=== PATIENT | female | born 1955 | race Caucasian/White ===

== ENCOUNTER 2021-08-26 08:03 | Outpatient (CLI) | payer MEDICARE, OTHER, SELFPAY ==
--- NOTE | 2021-08-26 08:15 | CRLHL7_ITS ---
For Patients: As a result of the Century Cures Act, medical imaging exams and procedure reports are released immediately into your electronic medical record. You may view this report before your referring provider. If you have questions, please contact your health care provider. INDICATION: Resistant HTN TECHNIQUE: Grayscale, color Doppler and spectral Doppler ultrasound examination the renal arteries performed. COMPARISON: None available FINDINGS: BILATERAL RENAL ARTERY DUPLEX ULTRASOUND ABDOMINAL AORTA: Peak systolic velocity = 126 cm/s. No aortic aneurysm. RIGHT KIDNEY: 11.2 cm in length. There is no hydronephrosis. Peak systolic velocity = 129 cm/second Renal artery to aortic peak systolic velocity ratio = 1.02 Resistive indices: 0.8 Renal vein = patent LEFT KIDNEY: 11.0 cm in length. There is no hydronephrosis. Peak systolic velocity = 161 cm/second Renal artery to aortic peak systolic velocity ratio = 1.28 Resistive indices: 0.7 Renal vein = patent IMPRESSION: No evidence of significant renal artery stenosis. Dictated by Brannon Celestin MD @ 08/26/2021 9:55:53 AM (Electronically Signed)
== END 2021-08-26 08:04 | disposition home or self-care (01) ==
LOC: US 08:12
PROVIDERS: PCP Family Medicine; Visit Provider Family Medicine
DX: I10 Essential (primary) hypertension (principal)
CPT/HCPCS: 76775; 93975

== ENCOUNTER 2021-11-13 17:44 | Emergency (ER) | payer MEDICARE, OTHER, SELFPAY ==
[2021-11-13 17:56] VITALS: BP 126/63; PULSE 88; RESP 18; TEMP 36.5; O2SAT 93; BMI 30.2
--- NOTE | 2021-11-13 18:27 | ED_ITS ---
HPI - General Adult General Chief complaint: Dizziness/Vertigo Stated complaint: DIZZINESS,FALLING ISSUES,HIGH BLOOD SUGAR Time Seen by Provider: 11/13/21 17:51 History of Present Illness HPI narrative: This 66-year-old female comes in reporting episodes of dizziness over the past several days. She states that this is not really vertigo or lightheadedness but feels off balance. She did fall earlier today and hit her head without loss of consciousness. She does not have any neurologic deficit and does not complain of a headache. She has had some vomiting and diarrhea over the past several days and states that her mouth is dry. She does have history of diabetes and notes that her blood sugar has been elevated a bit in these past several days. She does not report any pain. She has not had any dysuria. Related Data Home Medications Medication Instructions Recorded Confirmed amlodipine 10 mg tablet mg 11/13/21 atorvastatin 40 mg tablet mg 11/13/21 carvedilol 25 mg tablet mg 11/13/21 dapagliflozin 10 mg tablet mg 11/13/21 (Farxiga) doxazosin 2 mg tablet mg 11/13/21 dulaglutide 3 mg/0.5 mL mg subcut 11/13/21 [facility] furosemide 20 mg tablet mg 11/13/21 gabapentin 300 mg capsule mg 11/13/21 insulin glargine 100 unit/mL (3 unit subcut 11/13/21 mL) subcutaneous pen (Basaglar KwikPen U-100 Insulin) insulin glargine-yfgn 100 unit/mL unit subcut 11/13/21 (3 mL) subcutaneous pen (Semglee (insulin glargine-yfgn) Pen) lisinopril 20 tab 11/13/21 mg-hydrochlorothiazide 12.5 mg tablet metformin 500 mg tablet,extended mg PO 11/13/21 release 24 hr simvastatin 10 mg tablet mg 11/13/21 Allergies Allergy/AdvReac Type Severity Reaction Status Date / Time exenatide [From Bydureon] Allergy Intermediate Verified 11/13/21 18:05 amoxicillin Allergy Mild Verified 11/13/21 18:05 Sulfa (Sulfonamide Allergy Mild Verified 11/13/21 18:05 Antibiotics) Review of Systems Status of ROS: Reports: 10 or more systems reviewed and unremarkable except as noted in History and below Narrative: Constitutional: No fevers, no weight gain or loss. Eyes: No discharge. No vision changes. HENT: No congestion, no sore throat, no ear pain. Cardiovascular: No chest pain, no palpitations. Respiratory: No shortness of breath, no wheezes, no cough. Gastrointestinal: No abdominal pain. Nausea, vomiting, and diarrhea as described above. Genitourinary: No dysuria, no hematuria. Musculoskeletal: Normal range of motion. Skin: No rashes, no pruritis. Neurological: No weakness, sensory change, speech change. She has episodes of feeling off balance. Endo/Heme/Allergies: No bruising or bleeding. No polydipsia. Pysch: no suicidality, no anxiety, no insomnia. All other systems reviewed and are negative. [facility] Medical History (Updated 11/13/21 @ 20:06 by George Sánchez MD) DM (diabetes mellitus), type 2 Hypertension Postoperative prolapse of vaginal wall Surgical History (Updated 11/13/21 @ 18:08 by Whitney Navarro RN) H/O: hysterectomy History of hernia surgery Hx of cataract surgery Social History Smoking Status: Never smoker How often do you have a drink containing alcohol: never AUDIT-C Alcohol total score: 0 Non-prescribed substance use: denies use Exam Narrative: Exam Narrative: Constitutional: Well-developed, well-nourished, no acute distress. HEENT: Normocephalic, atraumatic. Neck: Normal range of motion. Nontender. Supple. Heart: Regular. No murmurs. Normal rate. Intact distal pulses. Lungs: Clear to auscultation. No chest discomfort. No wheezes, rhonchi, or rales. Abdomen: Normal bowel sounds. Nontender. No rebound tenderness. Genitalia: Deferred. Back: No midline tenderness. Normal range of motion. Extremities: Normal range of motion. No injury. Skin: Intact. No rash. Warm. No erythema or pallor. Neurologic: No altered sensation. No weakness. Alert and oriented. No facial asymmetry. No unilateral weakness. Normal speech. Psychiatric: No suicidality. No anxiety or depression. No insomnia. Nursing notes and vitals signs are reviewed. Const: Vital Signs, click to edit/add: Vital Signs - 24 hr 11/13/21 17:56 11/13/21 18:30 Temperature 97.7 F Pulse Rate [Pulse Oximeter] 88 83 Respiratory Rate 18 20 Blood Pressure [Ri ght Upper Arm] 126/63 127/58 L Pulse Oximetry 93 93 Oxygen Delivery Me thod Room Air Room Air Course Vital Signs Vital signs: Initial Vital Signs Temperature 97.7 F 11/13/21 17:56 Temperature Source Temporal Artery Scan 11/13/21 17:56 Pulse Rate 88 11/13/21 17:56 Respiratory Rate 18 11/13/21 17:56 Blood Pressure 126/63 11/13/21 17:56 Blood Pressure Mean 84 11/13/21 17:56 Blood Pressure Position Supine 11/13/21 17:56 Pulse Oximetry 93 11/13/21 17:56 Oxygen Delivery Method 11/13/21 17:56 Vital Signs Temperature 97.7 F 11/13/21 17:56 Pulse Rate 88 11/13/21 17:56 Respiratory Rate 18 11/13/21 17:56 Blood Pressure 126/63 11/13/21 17:56 Pulse Oximetry 93 11/13/21 17:56 Oxygen Delivery Method 11/13/21 17:56 Temperature 97.7 F 11/13/21 17:56 Pulse Rate 83 11/13/21 18:30 Respiratory Rate 20 11/13/21 18:30 Blood Pressure 127/58 L 11/13/21 18:30 Pulse Oximetry 93 11/13/21 18:30 Oxygen Delivery Method 11/13/21 18:30 Medical Decision Making MDM Narrative Medical decision making narrative: This patient comes in reporting some vomiting and diarrhea a few days ago and now has had some feeling of off balance. She arrives with normal vital signs. She states that her mouth has been dry for about 6 months and thinks that it was related to a medication she was taking. She reports that it is more dry recently. An IV was established where she received a L of normal saline and labs were drawn. Lab results returned with a creatinine at 2.8 and BUN at 45. I do not have comparison values available. The patient herself states that she did not know of any renal insufficiency in the past. It does seem that there is a pre renal component to these findings with volume depletion. She states that she is on a diuretic. Her COVID and influenza tests returned negative. Seeing the evidence of renal insufficiency I did give her another L of normal saline intravenously. This patient does have follow-up appointment with her primary physician next week. I underscored the importance of this follow-up a regarding these matters. Lab Data Labs: Lab Results 11/13/21 11/13/21 11/13/21 Range/Units 18:23 18:40 18:40 WBC 8.56 (4.50-11.00) K/uL RBC 3.67 L (4.00-5.20) m/uL Hgb 10.0 L (12.0-16.0) gm/dL Hct 30.4 L (33.0-51.0) % MCV 83 (80-100) fL MCH 27 (26-34) pg MCHC 33 (32-36) gm/dL RDW Coeff of Elizabeth 15.2 (11.5-15.5) % Plt Count 172 (140-440) K/uL Neut % (Auto) 86.8 H (42.0-72.0) % Lymph % (Auto) 6.4 L (20-44) % Toole % (Auto) 5.6 (0.0-11.0) % Eos % (Auto) 0.1 (0.0-7.0) % Baso % (Auto) 0.2 (0.0-3.0) % Neut # (Auto) 7.40 H (1.7-7.0) K/uL Lymph # (Auto) 0.50 L (0.90-2.90) K/uL Toole # (Auto) 0.50 (0.00-0.90) K/UL Eos # (Auto) 0.01 (0.00-0.50) K/uL Baso # (Auto) 0.02 (0.00-0.30) K/uL Abs Immat Gran (auto) 0.08 (0.00-0.30) K/uL Sodium 128 L (135-149) mmol/L Potassium 4.7 (3.6-5.1) mmol/L Chloride 96 (96-114) mmol/L Carbon Dioxide 20 (20-32) mmol/L BUN 45 H (7-30) mg/dL Creatinine 2.8 H (0.5-1.5) mg/dL Estimated Creat Clear 17.30 Estimated GFR 18 ml/min Glucose 350 H (60-115) mg/dL Calcium 9.0 (8.4-10.6) mg/dL SARS-CoV-2 (PCR) Negative SARS-CoV-2 (Negative) Influenza Type A (PCR) Negative PCR FLU A (Negative) Influenza Type B (PCR) Negative PCR FLU B (Negative) Discharge Plan Discharge Clinical Impression: Acute renal insufficiency, Fluid volume depletion Patient Disposition: Home, Self-Care Condition: Stable Additional Instructions: Follow-up with primary physician as scheduled or sooner if appointment is available. Return if worsening symptoms happen. Prescriptions: No Action atorvastatin 40 mg tablet Label Comments: TAKE 1 TABLET BY MOUTH AT BEDTIME carvedilol 25 mg tablet Label Comments: TAKE 1 TABLET BY MOUTH IN THE MORNING AND 1 TABLET IN THE EVENING. TAKE WITH MEALS. lisinopril-hydrochlorothiazide 20-12.5 mg tablet Label Comments: TAKE 2 TABLETS BY MOUTH EVERY DAY simvastatin 10 mg tablet Label Comments: TAKE 1 TABLET BY MOUTH ONCE DAILY WITH EVENING MEAL. amlodipine 10 mg tablet Label Comments: TAKE 1 TABLET BY MOUTH EVERY DAY gabapentin 300 mg capsule Label Comments: TAKE 1 CAPSULE BY MOUTH IN THE MORNING AND 2 CAPSULES AT BEDTIME furosemide 20 mg tablet metformin 500 mg tablet extended release 24 hr PO Label Comments: TAKE 2 TABLETS BY MOUTH TWICE A DAY WITH MEALS doxazosin 2 mg tablet Label Comments: TAKE 2 TABLETS BY MOUTH AT BEDTIME. insulin glargine [Basaglar KwikPen U-100 Insulin] 100 unit/mL (3 mL) insulin pen SUBCUT Farxiga 10 mg tablet Label Comments: TAKE 1 TABLET BY MOUTH EVERY DAY Trulicity 3 mg/0.5 mL pen injector SUBCUT Label Comments: INJECT 3 MG SUBCUTANEOUS ONCE WEEKLY. insulin glargine-yfgn [Semglee(insulin glarg-yfgn)Pen] 100 unit/mL (3 mL) insulin pen SUBCUT Label Comments: INJECT 16 UNITS SUBCUTANEOUS BEFORE BEDTIME. Follow Up/Referrals: Keegan Yoder MD [Primary Care Provider] - Stand Alone Forms: [facility] Info Instructions
[2021-11-13 18:30] VITALS: BP 127/58; PULSE 83; RESP 20; O2SAT 93
[2021-11-13] MEDS: 0.9 % SODIUM CHLORIDE 1000 ml 1,000 ML IV ×2 (18:45→19:43)
[2021-11-13 18:56] LABS: Basophils Absolute Auto 0.02 K/uL (0.00-0.30); Basophils Percent Auto 0.2 % (0.0-3.0); Eosinophils Absolute Auto 0.01 K/uL (0.00-0.50); Eosinophils Percent Auto 0.1 % (0.0-7.0); Hematocrit 30.4 % (33.0-51.0); Immature Granulocytes Abs Auto 0.08 K/uL (0.00-0.30); Lymphocytes Percent Auto 6.4 % (20-44); Mean Corpuscular HGB Conc 33 gm/dL (32-36); Mean Corpuscular Hemoglobin 27 pg (26-34); Mean Corpuscular Volume 83 fL (80-100); Monocytes Percent Auto 5.6 % (0.0-11.0); Neutrophils Percent Auto 86.8 % (42.0-72.0); Platelet Count* 172 K/uL (140-440); RDW Coefficient of Variation % 15.2 % (11.5-15.5); Red Blood Count 3.67 m/uL (4.00-5.20); White Blood Count* 8.56 K/uL (4.50-11.00)
[2021-11-13 18:58] LABS: Slide Review Reflex No
--- NOTE | 2021-11-13 19:04 | ED.NURSE ---
report given to courtney cerrato
[2021-11-13 19:09] LABS: Chloride* 96 mmol/L (96-114); Potassium* 4.7 mmol/L (3.6-5.1); Sodium* 128 mmol/L (135-149)
[2021-11-13 19:12] LABS: Blood Urea Nitrogen* 45 mg/dL (7-30); Carbon Dioxide* 20 mmol/L (20-32); Creatinine* 2.8 mg/dL (0.5-1.5); Estimated Glomerular Filt Rate 18 ml/min
[2021-11-13 19:13] LABS: Glucose* 350 mg/dL (60-115)
[2021-11-13 19:27] LABS: PCR FLU A Negative PCR FLU A (Negative); PCR FLU B Negative PCR FLU B (Negative)
[2021-11-13 19:44] LABS: SARS PCR* Negative SARS-CoV-2 (Negative)
[2021-11-13 20:43] VITALS: BP 125/67; PULSE 95
--- OUTSIDE RECORDS SUMMARY | 2021-11-21 21:27 | XMS_ITS | Clinical Summary ---
:1955 Author Organization [employer] [facility] [place] [address] Care Team Providers Name Role Phone Keegan Yoder MD Primary Care Provider [phone] Allergies Active Allergy Reactions Severity Noted Date Comments Amoxicillin Rash 05/26/2010 Exenatide Microspheres Rash 01/09/2013 Spironolactone Other - Describe In 09/04/2021 Dry mo uth, increase Comment Field in k and creat Sulfa (Sulfonamide Rash 05/26/2010 Antibiotics) Medications Medication Sig Dispensed Refills Start End Status Date Date aspirin 81 mg Take 81 mg by 0 Ac tive tablet mouth once daily with a meal. naproxen sodium Take 2 tablets 0 Active (ALEVE) 220 mg cap by mouth every 12 hours if needed. blood sugar 1 Each by 0 07/22/19 Active diagnostic strip Continuous 19 Infusion route. cholecalciferol Take 2,000 units 0 Active (VITAMIN D3) 2,000 by mouth. unit capsule amLODIPine Take 1 Tablet 90 Tablet 3 02/20/19 Activ e (NORVASC) 10 mg (10 mg) by mouth 22 tabletIndications: once daily. Benign essential hypertension pen needle, For 100 Each 3 02/24/19 Active diabetic (BD administering 22 Insulin Pen Needle insulin at home. UF) 31 gauge x 5/16Indications: Type 2 diabetes mellitus with diabetic neuropathy, without long-term current use of insulin (HC) carvediloL (COREG) Take 1 Tablet 180 Tablet 3 08/08/19 Active 25 mg (25 mg) by mouth 22 tabletIndications: in the morning Benign essential and 1 Tablet (25 HTN mg) in the evening. Take with meals. Accu-Chek Chantelle TEST 2 TIME/DAY 200 Each 3 08/24/19 Active Plus test strp 22 stripIndications: Type 2 diabetes mellitus with macular edema (HC) Farxiga 10 mg TAKE 1 TABLET BY 90 Tablet 1 09/03/19 Active tabletIndications: MOUTH EVERY DAY 22 Type 2 diabetes mellitus with macular edema (HC) dulaglutide Inject 3 mg 2 mL 5 09/05/19 Active (Trulicity) 3 subcutaneous 22 mg/0.5 mL once weekly. subcutaneous penIndications: Type 2 diabetes mellitus with diabetic neuropathy, without long-term current use of insulin (HC) atorvastatin Take 1 Tablet 90 Tablet 3 10/08/19 Act fox (LIPITOR) 40 mg (40 mg) by mouth 22 tabletIndications: at bedtime. Hyperlipidemia, unspecified hyperlipidemia type gabapentin TAKE 1 CAPSULE 270 Capsule 0 10/21/19 Ac tive (NEURONTIN) 300 mg BY MOUTH IN THE 22 capsuleIndications: MORNING AND 2 Diabetic peripheral CAPCULES AT neuropathy (HC) BEDTIME furosemide (LASIX) Take 1 Tablet 90 Tablet 3 11/07/19 Active 20 mg (20 mg) by mouth 22 tabletIndications: every morning. Hyperkalemia doxazosin (CARDURA) Take 2 Tablets 180 Tablet 3 11/07/19 Active 2 mg (4 mg) by mouth 22 tabletIndications: at bedtime. Benign essential HTN metFORMIN Take 2 Tablets 180 Tablet 1 11/07/19 Acti ve (GLUCOPHAGE XR) 500 (1,000 mg) by 22 mg Extended-Release mouth once daily tabletIndications: with evening Type 2 diabetes meal. mellitus with macular edema (HC) insulin glargine, Inject 16 units 15 mL 3 11/12/19 Active U-100, 100 unit/mL subcutaneous 22 (3 mL) before bedtime. penIndications: Product desired: Type 2 diabetes BASAGLAR mellitus with macular edema (HC) glimepiride Take 2 Tablets 180 Tablet 3 11/18/19 Di scontinued (AMARYL) 4 mg (8 mg) by mouth 21 022 (*Allergic/Adve tabletIndications: once daily with rse Rxn/Side Type 2 diabetes a meal. Effe cts) mellitus with macular edema (HC) doxazosin (CARDURA) TAKE 1 TABLET BY 90 Tablet 3 09/30/1908/04 Discontinued 2 mg MOUTH AT BEDTIME (Re order tabletIndications: ( E-cancel not Benign essential sen t)) HTN lisinopril-hydrochl TAKE 2 TABLETS 180 Tablet 3 10/06/1910/16 Discontinued orothiazide 20-12.5 BY MOUTH EVERY 022 (*Allergic/Adve mg tablet DAY rse Rxn/Si de (PRINZIDE)Indicatio Effects) ns: Benign essential hypertension insulin Inject 16 units 30 mL 1 10/08/19 Disc ontinued glargine-yfgn, subcutaneous (* Availability/ U-100, before bedtime. Form ulary (Semglee,insulin jos nge/Cost of glarg-yfgn,Pen) 100 medication) unit/mL (3 mL) penIndications: Type 2 diabetes mellitus with diabetic neuropathy, without long-term current use of insulin (HC) metFORMIN TAKE 2 TABLETS 120 Tablet 0 10/12/19 Disc ontinued (GLUCOPHAGE XR) 500 BY MOUTH TWICE A 22 022 mg Extended-Release DAY WITH MEALS tabletIndications: Type 2 diabetes mellitus with macular edema (HC) metFORMIN Take 2 Tablets 360 Tablet 1 11/06/19 Disc ontinued (GLUCOPHAGE XR) 500 (1,000 mg) by (*Medication mg Extended-Release mouth two times adjustment) tabletIndications: daily with Type 2 diabetes meals. mellitus with macular edema (HC) Lantus Solostar Inject 16 units 15 mL 1 11/07/19 Discontinued U-100 Insulin 100 subcutaneous (Reorder unit/mL (3 mL) before bedtime. (E-cancel not penIndications: Product desired: sent)) Type 2 diabetes LANTUS SOLOSTAR, mellitus with or as covered by macular edema (HC) insurance. 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 08/02/2017 Type 2 diabetes with complication 02/15/2000 Obesity (BMI 30.0-34.9) Microalbuminuria Hyperlipemia Essential hypertension Resolved Problems Problem Noted Date Resolved Date Secondary diabetes mellitus 08/29/2019 02/20/2021 Benign essential hypertension 08/30/2017 02/20/2021 Hypertriglyceridemia 08/30/2017 02/20/2021 Diabetic retinopathy 02/20/2021 CKD (chronic kidney disease) stage 3, GFR 30-59 ml/min 10/07/2021 Encounters Date Type Specialty Care Team Description 11/21/2021 Telephone Linette Rodriges PA 11/20/2021 Orders Only Lab, [facility] 11/20/2021 Travel 11/11/2021 Telephone Keegan Yoder Refill Requ kayla Echeverria MD (Alternative Re quested -- LANTUS SOLOSTAR 100 UNIT/ML) 11/10/2021 Refill Keegan Yoder Refill Requ kayla Echeverria MD (Amlodipine) 11/06/2021 Office Visit Keegan Yoder Follow Up ( Change in MD Jacki medications); Immunization/In jection; Immunization/In jection (COVID-19 vacci ne) 11/06/2021 Travel 11/05/2021 Orders Only Lab, [facility] 11/05/2021 Telephone Keegan Yoder Results MD Jacki 11/04/2021 Orders Only Lab, [facility] 11/04/2021 Travel 11/03/2021 Refill Keegan Yoder Refill Requ kayla Echeverria MD (Metformin) 10/28/2021 Patient Outreach Rhea Otero RD Di abetes (DM education) 10/28/2021 Travel 10/16/2021 Refill Pascual Son Refil l Request MD (Gabapentin) 10/08/2021 Refill Keegan Yoder Refill Requ kayla Echeverria MD (Metformin) 10/07/2021 Office Visit Keegan Yoder Follow Up ( medications); MD Jacki Concerns (Swell ing in lower left leg, weight gain) 10/07/2021 Travel 10/02/2021 Orders Only Lab [facility] (/) 10/02/2021 Refill Keegan Yoder Refill Requ kayla Echeverria MD (Lisinopril-hyd rochloroth iazide (20-12.5 Mg)) 10/02/2021 Travel 09/26/2021 Refill Keegan Yoder Refill Requ est MD Jacki (Doxazosin) 09/19/2021 Refill Pasucal Son, Refil l Request (Glimepiride) 09/13/2021 Refill Keegan Yoder Refill Requ est MD Jacki (Metformin) 09/04/2021 Office Visit Keegan Yoder Follow Up ( Recent MD Jacki medication peters ges) 09/04/2021 Travel 09/01/2021 Telephone Keegan Yoder Results MD Jacki 08/31/2021 Refill Keegan Yoder Refill Requ est (Farxiga) MD Jacki 08/26/2021 Orders Only Scanner <No scans attac hed> 08/22/2021 Refill Pascual Son, Refil l Request (Accu-chek Chantelle Plus Test Strp) 08/21/2021 Orders Only Lab, [facility] 08/21/2021 Travel from Last 3 Months Immunizations Name Administration Dates Next Due COVID-19 vaccine (Pfizer-BioNTech 11/06/2021 30mcg/0.3mL) 12YO+ BIVALENT BOOSTER PF, MDV COVID-19 vaccine (SuperMama-BioNTmySBX 06/12/2021 30mcg/0.3mL) 12YO+ NANDO-SUCROSE PF, MDV Influenza Virus, Unspecified 12/07/2018, 11/10/2012, 012, 12/19/2009, 12/26/2004, 11/19/2003, 12/12/2002, 12/08/2001 Influenza, IIV3 (Age 6-35 mos) 11/03/2014 Influenza, IIV3 (Age >=3 years) 11/07/2013, 11/10/2012, 10/16, 12/19/2009, 12/26/2004, 11/19/2003, 12/12/2002, 12/08/2001 Influenza, IIV4 10/24/2020, 10/26/2017, 11/09/2016, 11/03/2014, 11/08/2013, 11/11/2010 Influenza, IIV4 (=>6mos) MDV 11/09/2019 Influenza, Inactivated AIIV4 (Age 65+ 11/06/2021 Years) Preserv Free Pneumococcal Poly,23-Valent 12/12/2002 (Pneumovax) Td (Age >=7 Years) 02/14/2003 Tdap 06/12/2021, 11/12/2011, 02/21/2009 Zoster (Shingrix-RZV, recombinant) 07/13/2017, 05/09/2017 Family History Medical History Relation Name Comments Cancer Father esophageal at 60 Anemia Maternal Aunt Aplastic anemia Lung disease Maternal Grandfather Mesotheliom a Diabetes Maternal Grandmother Lung disease Maternal Uncle 1 Mesothelioma Lung disease Maternal Uncle 2 Mesothelioma Pulmonary fibrosis Mother at 73 Cancer-breast No Family History Cancer-colon No Family History Cancer-ovarian No Family History Relation Name Status Comments Father Maternal Aunt Maternal Grandfather Maternal Grandmother Maternal Uncle 1 Maternal Uncle 2 Mother Social History Tobacco Use Types Packs/Day Years Used Date Never Smoker Smokeless Tobacco: Never Used Tobacco Cessation: Counseling Given: Yes Alcohol Use Standard Drinks/Week Comments Yes 0 (1 standard drink = 0.6 oz pure alcoho l) occassionally Alcohol Habits Answer Date Recorded How often do you have a drink containing alcohol? Not asked How many drinks containing alcohol do you have on a Not aske d typical day when you are drinking? How often do you have six or more drinks on one occasion? No t asked Comment: occassionally 10/28/2020 Sex Assigned at Date Recorded Not on file COVID-19 Exposure Response Date Recorded In the last 10 days, have you been in contact with No / Unsu re 11/20/2021 10:15 AM CDT someone who was confirmed or suspected to have Coronavirus/COVID-19? 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 Plan of Treatment Upcoming Encounters Date Type Specialty Care Team Description 11/27/2021 Office Visit Keegan Yoder MD [address] [place], [place] [phone] (Wo rk) Health Maintenance Due Date Last Done Comments Pap test for age 21-65 1977 Pneumococcal series for age 65+ (2 12/13/2003 12/12/2002 - PCV) DEXA/DXA scan for age 65+ 2021 Medicare Wellness for age 65+ 2021 Fecal testing non-DNA 10/06/2021 10/06/2020 (FIT,FOBT,iFOBT) for age 45-75 BMI (ht and wt on same day) for 02/20/2022 02/20/2021, 12/15 age 18+ Depression screening for age 12+ 03/13/2022 03/13/2021, Mammogram for age 45-75 06/12/2022 06/12/2021, 01/07/2020 Lipids for age 45-75 10/02/2026 10/02/2021, 10/28/2020, 01/03/2020 Tetanus booster 06/13/2031 06/12/2021, 11/12/2011, 02/21/2009, Additional history exists Zoster (shingles) series for age Completed 07/13/2017, 50+ Hepatitis C screening for age Completed 10/28/2020 18-79 Tdap Completed 06/12/2021, 11/12/2011, 02/21/2009 COVID-19 vaccine series Completed 11/06/2021, 06/12/2021, 12/02/2020, Additional history exists Influenza for age 65+ Completed 11/06/2021, 10/24/2020, 11/09/2019, Additional history exists Medical Devices Implanted Type Area Editor Sound Device Shelf Model / Identifier Expiration Date Ser ial / Lot Lens Iol Toric Iq At5 9.5 - [id number] Left: Eye Walter 01/14/2015 [id number] / Implanted: Qty: 1 on 05/28/2010 at [facility] [employer] [id number] / [id number] 14 Description: CHECKED JI Lens Iol Toric Iq At5 9.5 - [id number] Walter [employer] [id number] / Implanted: Qty: 1 on 06/11/2010 at [facility] [id number] / Mesh Ventral 3x5in Surgipro Clear - [id number] Le ft: Inguinal COVIDIEN - AUTOSUTURE [id number] / Implanted: Qty: 1 on 01/09/2013 by Ian Mendoza MD at [facility] 8 / [id number] Procedures Procedure Name Priority Date/Time Associated Diagnosis Comme nts BASIC METABOLIC Routine 11/20/2021 10:21 Hyperkalemia Results for this PANEL AM CDT procedure are i n the results section. POTASSIUM,ISTAT Routine 11/05/2021 4:12 PM Hyperkalemia Result s for this CDT procedure are i n the results section. CREATININE,ISTAT Routine 11/05/2021 4:07 PM Resul ts for this CDT procedure are i n the results section. BASIC METABOLIC Routine 11/05/2021 4:06 PM Type 2 diabetes Res ults for this PANEL CDT mellitus with macular proced ure are in edema (HC) the results section. BASIC METABOLIC Routine 11/04/2021 8:43 AM Stage 3a chronic Re sults for this PANEL CDT kidney disease (HC) procedur e are in the results section. BASIC METABOLIC Routine 10/02/2021 8:14 AM Type 2 diabetes Res ults for this PANEL CDT mellitus with procedure are in diabetic neuropathy, the res ults without long-term section. current use of insulin (HC) LIPID PANEL W Routine 10/02/2021 8:14 AM Type 2 diabetes Resul ts for this REFLEX MEASURED LDL CDT mellitus with procedu re are in diabetic neuropathy, the res ults without long-term section. current use of insulin (HC) URINE ALBUMIN TO Routine 10/02/2021 8:14 AM Type 2 diabetes Re sults for this CREATININE RATIO, CDT mellitus with procedure are in RANDOM diabetic neuropathy, the res ults without long-term section. current use of insulin (HC) HEMOGLOBIN A1C Routine 10/02/2021 8:14 AM Type 2 diabetes Resu lts for this CDT mellitus with procedure are in diabetic neuropathy, the res ults without long-term section. current use of insulin (HC) BASIC METABOLIC Routine 09/04/2021 10:35 Benign essential HTN Results for this PANEL AM CDT procedure are i n the results section. SCAN-ULTRASOUND 08/26/2021 12:00 Results for this REPORT AM CDT procedure are i n the results section. BASIC METABOLIC Routine 08/21/2021 9:38 AM Benign essential HT N Results for this PANEL CDT procedure are i n the results section. from Last 3 Months Results (ABNORMAL) BASIC METABOLIC PANEL (11/20/2021 10:21 AM CDT)Only the most recent of6 resultswithin the time period is included. [facility] Method Time Signature SODIUM 133 (L) 135 - 145 11/21/2021 [facility] mmol/L 1:44 PM CDT [facility] POTASSIUM 4.8 3.5 - 5.0 11/21/2021 [facility] mmol/L 1:44 PM CDT [facility] CHLORIDE 101 98 - 110 11/21/2021 [facility] mmol/L 1:44 PM CDT [facility] CO2,TOTAL 20 (L) 21 - 31 11/21/2021 [facility] mmol/L 1:44 PM CDT [facility] ANION GAP 12 5 - 18 11/21/2021 [facility] 1:44 PM CDT [facility] GLUCOSE 409 (HH) 65 - 100 11/21/2021 [facility] mg/dL 1:44 PM CDT [facility] CALCIUM 8.7 8.5 - 10.5 11/21/2021 [facility] mg/dL 1:44 PM CDT [facility] BUN 35 (H) 8 - 25 11/21/2021 [facility] mg/dL 1:44 PM CDT [facility] CREATININE 2.26 (H) 0.57 - 11/21/2021 [facility] 1.11 mg/dL 1:44 PM CDT [facility] BUN/CREAT RATIO 15 10 - 20 11/21/2021 [facility] 1:44 PM CDT [facility] eGFR 24 (L) >90 11/21/2021 [facility] mL/min/1.7 1:44 PM CDT [facility] 3m2 TRAL LABORATORY Comment: As of 2021, eGFR is calcu lated by the CKD-EPI creatinine equation without race adjustment. eGFR can be inf luenced by muscle mass, exercise, and diet. The reported eGFR is an estimation only and is only applicable if the renal function is stable. Specimen Anatomical Collection Method / Collection Time Recei shannon Time (Source) Location / Volume Laterality Blood BLOOD SPECIMEN / Venipuncture / 11/20/2021 10:21 11/20 Unknown Unknown AM CDT 10:21 AM CDT Keegan Yoder MD CHEMISTRY Performing Organization Address City/State/ZIP Code Phon e Number [facility] [address] [place], [place] [address] [address] LAB[facility]ATORY[facility]CENTRAL 2000 LABORATORY (ABNORMAL) POTASSIUM,ISTAT (11/05/2021 4:12 PM CDT) athologist Signature POTASSIUM, 5.3 (H) 3.5 - 5.0 11/05/2021 [facility] POCT mmol/L 4:16 PM CDT [facility] Specimen Anatomical Collection Method Collection Time Receive d Time (Source) Location / / Volume Laterality Blood BLOOD SPECIMEN / 11/05/2021 4:12 PM 11/05 4:16 Unknown CDT PM CDT Keegan Yoder MD CHEMISTRY Performing Organization Address City/[facility]/ZIP Code Phon e Number [facility] [address] [place] [address] (ABNORMAL) CREATININE,ISTAT (11/05/2021 4:07 PM CDT) Analysis Performed At Patho logist Time Signature CREATININE, 2.10 (H) 0.57 - 11/05/2021 [facility] POCT 1.11 mg/dL 4:19 PM CDT [facility] Comment: Caution: Patients taking Hydrox yurea have falsely increased iStat Creatinine results. Verify creatinine results order ing a Creatinine (96555.2) eGFR 26 (L) >90 mL/min/1.73m2 11/05/2021 4:19 PM CDT [facility] Comment: As of 2021, eGFR is calcu lated by the CKD-EPI creatinine equation without race adjustment. eGFR can be inf luenced by muscle mass, exercise, and diet. The reported eGFR is an estimation only and is only applicable if the renal function is stable. Specimen Anatomical Collection Method Collection Time Receive d Time (Source) Location / / Volume Laterality Blood BLOOD SPECIMEN / 11/05/2021 4:07 PM 11/05 4:19 Unknown CDT PM CDT [facility] CHEMISTRY Performing Organization Address City/State/ZIP Code Phon e Number [facility] [address] [place] [address] (ABNORMAL) LIPID PANEL W REFLEX MEASURED LDL (10/02/2021 8:14 AM CDT) [facility] gist Method Time Signature CHOLESTEROL,TOTAL 136 100 - 199 10/02/2021 [facility] mg/dL 5:45 PM CDT [facility] TRIGLYCERIDES 230 (H) <150 10/02/2021 [facility] mg/dL 5:45 PM CDT [facility] HDL CHOLESTEROL 33 (L) >40 mg/dL 10/02/2021 [facility] 5:45 PM CDT [facility] NON-HDL 103 <145 10/02/2021 [facility] CHOLESTEROL mg/dl 5:45 PM CDT [facility] CHOL/HDL RATIO 4.12 <4.50 10/02/2021 [facility] 5:45 PM CDT [facility] LDL CHOLESTEROL 57 <=130 10/02/2021 [facility] mg/dL 5:45 PM CDT [facility] VLDL CHOLESTEROL 46 (H) <=30 10/02/2021 [facility] mg/dL 5:45 PM CDT [facility] PROVIDER ORDERED RANDOM 10/02/2021 [facility] STATUS 5:45 PM CDT [facility] Specimen Anatomical Collection Method / Collection Time Recei shannon Time (Source) Location / Volume Laterality Blood BLOOD SPECIMEN / Venipuncture / 10/02/2021 8:14 2021 8:15 Unknown Unknown AM CDT AM CDT Keegan Yoder MD CHEMISTRY Performing Organization Address City/[facility]/ZIP Code Phon e Number [facility] [address] [facility] [place] [address] LABORATORY-CENTRAL 1999 LABORATORY (ABNORMAL) URINE ALBUMIN TO CREATININE RATIO, RANDOM (10/02/2021 8:14 AM CDT) [facility] gist Method Time Signature ALB RAND URINE 114.3 mg/L 10/02/2021 [facility] 5:05 PM CDT [facility] CREATININE,URIN 0.32 g/L 10/02/2021 [facility] E 5:05 PM CDT [facility] ALBUMIN TO 357.2 (H) <30.0 10/02/2021 [facility] CREATININE mg/g 5:05 PM CDT [facility] RATIO,RAND UR creat TRAL LABORATORY Specimen Anatomical Collection Method Collection Time Receive d Time (Source) Location / / Volume Laterality Urine URINE SPECIMEN / Non-Blood / 10/02/2021 8:14 AM 10/02 8:15 Unknown Unknown CDT AM CDT Narrative [facility] LABORATORY-CENTRAL LABORAT ORY - 10/02/2021 5:05 PM CDT If Albumin to Creatinine Ratio is elevated, consider the following: ? Elevations seen with incipient nephr opathy associated ?? with diabetes mellitus or hypertensi on. Stress, exercise, ?? hematuria, and urinary tract infecti on may also produce ?? elevated results. If clinically samuel cated, confirm with ?? 24 Hour Albumin to Creatinine Ratio. Keegan Yoder MD URINE Performing Organization Address City/[facility]/ZIP Code Phon e Number [facility] [address] [facility] [place] [address] LABORATORY-CENTRAL 1999 LABORATORY (ABNORMAL) HEMOGLOBIN A1C MONITORING (POCT) (10/02/2021 8:14 AM CDT) Analysis Performed At [facility] logist Time Signature HEMOGLOBIN A1C 8.9 (H) <=6.4 % 10/02/2021 [facility] MONITORING 8:28 AM CDT [facility] Specimen Anatomical Collection Method / Collection Time Recei shannon Time (Source) Location / Volume Laterality Blood BLOOD SPECIMEN / Venipuncture / 10/02/2021 8:14 2021 8:15 Unknown Unknown AM CDT AM CDT Narrative [facility] - 2021 8:28 AM CDT ? (<=6.9%) ? Indicates good control ? (7.0% to 7.9%) ? Indicates fa ir control ? (>=8.0%) ? Indicates poor control ?? NOTE: ??These thresholds are guideli taniya and ?individual targets may va ry. Falsely low levels may be seen with: Recent Transfusion, Recent Significant B lood Loss, Hemolytic Diseases, or Falsely elevated levels may be seen with : Untreated Anemias, Splenectomy ? Keegan Yoder MD CHEMISTRY Performing Organization Address City/State/ZIP Code Phon e Number [facility] [address] [place] [address] SCAN-ULTRASOUND REPORT (08/26/2021 12:00 AM CDT) Narrative This result has an attachment that is no t available. Scanner OTHER from Last 3 Months Insurance Payer Benefit Plan / Subscriber ID Effective Dates Phone Addre ss Type Group MEDICARE - PB MEDICARE [place] ONLY [id number] 2021-Presen ATTN: CLAIMS USE ONLY t [address] [place] [address] COMMERCIAL [employer] MEDICARE [id number] 2021-Presen [id number] SUPPLEMENT t [employer] [phone] Advance Directives Latest Code Status on File Code Status Date Activated Date Inactivated Comments Full Code 01/09/2013 6:56 AM 01/09/2013 1:45 PM Full Code 06/11/2010 7:38 AM 06/11/2010 1:35 PM Full Code 05/28/2010 9:22 AM 05/28/2010 3:10 PM Care Teams Pattern Room Attendant Relationship Specialty Start Date End Date Keegan Yoder MD PCP - General Family Practice 02/20/21 [address] [place] [address]
== END 2021-11-13 20:44 | disposition home or self-care (01) ==
PROVIDERS: Emergency Provider Emergency Medicine Emergency Medical Services; PCP Family Medicine
DX: N28.9 Disorder of kidney and ureter, unspecified (principal); E86.9 Volume depletion, unspecified
CPT/HCPCS: 36415; 80048; 85025; 87631; 96360; 96361; 99284; J7030

== ENCOUNTER 2023-04-13 13:00 | Outpatient (RCR) | payer MEDICARE, OTHER, SELFPAY | END 2023-06-07 10:31 | disposition home or self-care (01) | PROVIDERS: PCP Family Medicine; Visit Provider Family Medicine | DX: M25.511 Pain in right shoulder (principal); M25.512 Pain in left shoulder; M67.819 Other specified disorders of synovium and tendon, unspecified shoulder; M25.619 Stiffness of unspecified shoulder, not elsewhere classified; M62.81 Muscle weakness (generalized); Z51.89 Encounter for other specified aftercare | CPT/HCPCS: 97110; 97112; 97140; 97161 ==